=== PATIENT | female | born 1995 | race Caucasian/White ===

== ENCOUNTER 2021-04-30 15:50 | Inpatient (IN) | payer OTHER ==
[~2021-04-30] VITALS: Ht 162.7 cm; Wt 155.5 kg
[2021-05-12] VITALS (234 sets, daily range): BP systolic 123–159; BP diastolic 72–99; PULSE 71–112; TEMP 98.1–98.6; O2SAT 89–100
[2021-05-12] MEDS ORDERED: CALCIUM CITRAT200 M2 (08:05)
[2021-05-12] MEDS ORDERED: MULTIVITAMIN FO1 CAP PO (08:06)
[2021-05-12] MEDS ORDERED: VITAMIN D 400400 IU PO (08:06)
[2021-05-12] MEDS ORDERED: B-12 500 MCG PO (08:07)
[2021-05-12] MEDS ORDERED: HAIRSKINNAILS PO (08:07)
--- NOTE | 2021-05-12 08:35 | NUR ---
Pt to bay [facility], ambulates without difficulty, at bedside. Alert and oriented, assessments and vital signs completed. IV started to right hand #18 gauge. Warm blanket provided, call light in reach, side rails up x2. Dr. Love at bedside and talks with pt.
--- NOTE | 2021-05-12 10:33 | NUR ---
Pt up to the bathroom without difficulty and returns to cart. Call light remains in reach and at bedside.
--- NOTE | 2021-05-12 19:19 | NUR ---
Report given to MERLY Salguero.
--- NOTE | 2021-05-12 20:00 | NUR ---
Assessment complete. Pt is AXO X3, states she has pain in her ABD rated at an 8/10. 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 Pt is resting quietly in the bed using her phone at this time and she denies further needs. Call light within reach.
[2021-05-13] VITALS (347 sets, daily range): BP systolic 91–146; BP diastolic 52–80; PULSE 65–87; TEMP 97.9–99; O2SAT 90–100
--- NOTE | 2021-05-13 07:45 | NUR ---
Bedside shift report given to MERLY Dasilva.
[2021-05-13 09:22] LABS: BASO % 0.1 % (0.0-2.0); EOS # 0.1 (0.0-0.7); EOS % 0.8 % (0-4.0); GRAN # 6.9 (1.4-6.5); GRAN % 69.1 % (42.2-75.2); HEMATOCRIT 37.6 % (37.0-47.0); HEMOGLOBIN 11.6 g/dl (12.5-16.0); LYMPH % 19.8 % (20.0-51.0); MEAN CELL VOLUME 85 fl (80.0-100.0); MEAN CORPUSCULAR HEMOGLOBIN 26 pg (27.0-31.0); MEAN CORPUSCULAR HGB CONC 31 g/dl (33.0-37.0); MEAN PLATELET VOLUME 11.7 fl (7.4-10.4); MONO % 9.9 % (1.7-9.3); PLATELET COUNT 212 K/mm3 (130-400); RED BLOOD COUNT 4.45 M/mm3 (4.10-5.30); REDCELL DISTRIBUTION WIDTH-CV 14.7 % (11.5-14.5)
[2021-05-13 09:34] LABS: CALCIUM 8.2 mg/dL (8.4-10.2); CREATININE, serum 0.65 (0.52-1.25)
--- NOTE | 2021-05-13 09:45 | NUR ---
Bellows Tester met with patient to discuss discharge planning. Patient's , Jonah (ph#[phone]) is at bedside. Patient and Jonah live on [place] and patient receives primary care and medications from [facility]. Patient states she and Jonah have a three year old daughter who is currently being cared for by her mother. Patient does not use any DME and is independent with ADLS. Patient does not have Advance Directives and was not interested in completing DPOA-HC at this time. Discharge Plan: Home
--- NOTE | 2021-05-13 11:07 | NUR ---
Patient transfered from ICU to surgical floor via wheelchair. Assisted by MERLY Silva. Patient alert and oriented and in no distress upon transfer.
--- NOTE | 2021-05-13 12:35 | NUR ---
DC'D DE OLIVEIRA PER ORDERS. PATIENT TOLERATED WELL AND IS NOW GETTING CLEANED UP AND PANTS PUT ON.
--- NOTE | 2021-05-13 23:09 | NUR ---
Pt has been great. She ate, tolerated it.Will continue to monitor.
[2021-05-14 00:09] VITALS: BP 130/52; PULSE 84; TEMP 98.5
[2021-05-14 04:48] VITALS: BP 115/57; PULSE 85; TEMP 98.1
[2021-05-14 06:53] LABS: BASO % 0.3 % (0.0-2.0); EOS # 0.2 (0.0-0.7); EOS % 2.4 % (0-4.0); GRAN # 4.7 (1.4-6.5); GRAN % 59.5 % (42.2-75.2); HEMOGLOBIN 11.2 g/dl (12.5-16.0); LYMPH # 2.1 (1.2-3.4); LYMPH % 26.9 % (20.0-51.0); MEAN CELL VOLUME 85 fl (80.0-100.0); MEAN CORPUSCULAR HEMOGLOBIN 26 pg (27.0-31.0); MEAN CORPUSCULAR HGB CONC 31 g/dl (33.0-37.0); MEAN PLATELET VOLUME 11.5 fl (7.4-10.4); MONO # 0.8 (0.1-0.6); MONO % 10.6 % (1.7-9.3); PLATELET COUNT 200 K/mm3 (130-400); RED BLOOD COUNT 4.28 M/mm3 (4.10-5.30); REDCELL DISTRIBUTION WIDTH-CV 14.8 % (11.5-14.5)
[2021-05-14 06:54] LABS: HEMATOCRIT 36.2 % (37.0-47.0)
[2021-05-14 07:17] LABS: CALCIUM 8.1 mg/dL (8.4-10.2); CREATININE, serum 0.6 (0.52-1.25); POTASSIUM 3.9 mmol/L (3.4-5.0)
[2021-05-14 08:53] VITALS: BP 122/61; PULSE 89; TEMP 98.1
--- NOTE | 2021-05-14 10:37 | NUR ---
Follow-up; Nurse with Patient, Environmental Health Inspector left prayer card having visited [place] yesterday.
[2021-05-14] MEDS ORDERED: NORCOELIX PO (11:10)
[2021-05-14] MEDS ORDERED: ZOFRAN 4MG T4 MG/TAB PO (11:10)
[2021-05-14] MEDS ORDERED: PRILOSEC 20MG20 MG PO (11:11)
[2021-05-14 12:03] VITALS: BP 127/63; PULSE 74; TEMP 97.9
--- NOTE | 2021-05-14 12:48 | NUR ---
Patient ready for discharge. She is feeling much better after talking with dexter Linder. She has better understanding of diet. She was a little emotional this am after asking for assistance after having a BM. Assisted with pericare. Pain much imporved after removed B[place] drain. Overall patient glad to be going home. Her Spouse taking her. SHe verbalized discharge teaching. WE reviewed med sent to pher pharmacy of choice with side effects and last dose taken. Activity & dietarty restrictions reviewed. Patient had pre surgery counciling & denies any further questions or concerns. David wheeled out with all belongigns.
== END 2021-05-14 13:04 | disposition home or self-care (01) | DRG 621 ==
LOC: INPTSU 05-12 07:27 → SURG 05-12 10:00 → ICU 05-12 15:09 → SURG 05-13 11:43
PROVIDERS: ADMIT Surgery
PROC: 8E0W4CZ Robotic Assisted Procedure of Trunk Region, Percutaneous Endoscopic Approach (ICD-10-PCS; 2021-05-12)
PROC: 0D164ZA Bypass Stomach to Jejunum, Percutaneous Endoscopic Approach (ICD-10-PCS; principal; 2021-05-12 10:00)
DX: E66.01 Morbid (severe) obesity due to excess calories (principal); Z68.43 Body mass index [BMI] 50.0-59.9, adult
CPT/HCPCS: A4314; C9113; J0330; J0690; J1170; J1650; J1885; J1956; J2405; J2550; J2704; J3010; J3480; J7120

== ENCOUNTER 2021-07-13 20:09 | Observation (INO) | payer OTHER ==
[~2021-07-13] VITALS: Ht 162.6 cm; Wt 134.5 kg
[~2021-07-13 20:09] MED LIST: B-12 500 MCG PO; CALCIUM CITRAT200 M2; HAIRSKINNAILS PO; MULTIVITAMIN FO1 CAP PO; NORCOELIX PO; PRILOSEC 20MG20 MG PO; VITAMIN D 400400 IU PO; ZOFRAN 4MG T4 MG/TAB PO
[2021-07-13 20:39] LABS: BASO % 0.4 % (0.0-2.0); EOS # 0.2 (0.0-0.7); EOS % 1.6 % (0-4.0); GRAN # 5.1 (1.4-6.5); GRAN % 55.1 % (42.2-75.2); HEMOGLOBIN 13.3 g/dl (12.5-16.0); LYMPH # 3.1 (1.2-3.4); LYMPH % 32.9 % (20.0-51.0); MEAN CELL VOLUME 85 fl (80.0-100.0); MEAN CORPUSCULAR HEMOGLOBIN 27 pg (27.0-31.0); MEAN CORPUSCULAR HGB CONC 32 g/dl (33.0-37.0); MEAN PLATELET VOLUME 12.7 fl (7.4-10.4); MONO # 0.9 (0.1-0.6); MONO % 9.7 % (1.7-9.3); PLATELET COUNT 243 K/mm3 (130-400); RED BLOOD COUNT 4.95 M/mm3 (4.10-5.30); REDCELL DISTRIBUTION WIDTH-CV 15.5 % (11.5-14.5)
[2021-07-13] MEDS ORDERED: AZO-CRANBERRY450 MG (20:47)
[2021-07-13 20:50] LABS: ALBUMIN 4.7 gm/dL (3.5-5.0); BILIRUBIN,TOTAL 0.3 mg/dL (0.0-1.0); C-REACTIVE PROTEIN 1.5 mg/dL (0.0-0.9); CALCIUM 9.8 mg/dL (8.4-10.2); CREATININE, serum 0.66 (0.52-1.25); POTASSIUM 3.9 mmol/L (3.4-5.0); TOTAL PROTEIN 8.3 gm/dL (6.4-8.2)
[2021-07-14 07:16] LABS: BASO % 0.4 % (0.0-2.0); EOS # 0.2 (0.0-0.7); GRAN # 3.8 (1.4-6.5); HEMATOCRIT 38.5 % (37.0-47.0); HEMOGLOBIN 12.1 g/dl (12.5-16.0); LYMPH # 2.5 (1.2-3.4); LYMPH % 33.6 % (20.0-51.0); MEAN CELL VOLUME 86 fl (80.0-100.0); MEAN CORPUSCULAR HEMOGLOBIN 27 pg (27.0-31.0); MEAN CORPUSCULAR HGB CONC 31 g/dl (33.0-37.0); MEAN PLATELET VOLUME 12.6 fl (7.4-10.4); MONO # 0.8 (0.1-0.6); MONO % 10.7 % (1.7-9.3); PLATELET COUNT 195 K/mm3 (130-400); REDCELL DISTRIBUTION WIDTH-CV 15.6 % (11.5-14.5)
[2021-07-14 07:23] LABS: ALBUMIN 3.9 gm/dL (3.5-5.0); BILIRUBIN,TOTAL 0.3 mg/dL (0.0-1.0); CALCIUM 9.1 mg/dL (8.4-10.2); CREATININE, serum 0.57 (0.52-1.25); TOTAL PROTEIN 6.9 gm/dL (6.4-8.2)
--- NOTE | 2021-07-14 09:45 | NUR ---
Patient to room via wheel chair by ER staff. IVF to pump at 125 ml/hr. Pt oriented to room.
[2021-07-14 10:23] VITALS: BP 103/44; PULSE 71; TEMP 98
--- NOTE | 2021-07-14 10:30 | NUR ---
"INTAKE ASSESSMENT COMPLETED. PATIENT WONDERING ABOUT PROGRESSING DIET FROM NPO| CURRENT PAIN 5/10 IN RIGHT UPPER QAUDRANT. 1045| CALL TO DR. ALEMAN'S NURSE. INSTRUCTED TO CALL DR. ALEMAN ON CELL HE IS IN OR TODAY. 1051: CALL TO DR. ALEMAN. TORB FOR CLEAR LIQUID DIET; TREAT PAIN AND NAUSEA PRN. WILL BE UP TO SEE PATIENT LATER TODAY."
--- NOTE | 2021-07-14 11:29 | NUR ---
PATIENT UP TO RESTROOM INDEPENDANTLY. C/O PAIN IN RUQ AT 5/10, DENIES MORPHINE AT THIS TIME, [facility] BLANKET PROVIDED. PT ABLE TO ORDER CLD FOR LUNCH. CALL LIGHT AND BELONGINGS AT BEDSIDE. BED LOW AND LOCKED. AT BEDSIDE.
[2021-07-14 14:00] VITALS: BP 100/48; PULSE 76; TEMP 97.9
--- NOTE | 2021-07-14 15:11 | NUR ---
Patient showered and changed into own clothing. Pt c/o headache and decreased URQ pain. Would like some tylenol for PARDO. Call to Dr. Ivan KEITH for 650 mg q 6 PRN for pain. Okay to d/c IVF if tolerating PO fluids. Dr. Love will enter orders for PO pain meds for URQ pain.
[2021-07-14 18:40] VITALS: BP 105/52; PULSE 67; TEMP 97.6
[2021-07-15 00:30] VITALS: BP 92/42; PULSE 63; TEMP 97.9
[2021-07-15 04:15] VITALS: BP 114/65; PULSE 80; TEMP 97.4
[2021-07-15 07:17] LABS: ALBUMIN 4.3 gm/dL (3.5-5.0); BILIRUBIN,TOTAL 0.2 mg/dL (0.0-1.0); CALCIUM 9.4 mg/dL (8.4-10.2); CREATININE, serum 0.51 (0.52-1.25); POTASSIUM 4.1 mmol/L (3.4-5.0); TOTAL PROTEIN 7.4 gm/dL (6.4-8.2)
[2021-07-15 08:00] VITALS: BP 109/65; PULSE 71; TEMP 97.5
--- NOTE | 2021-07-15 10:54 | NUR ---
Initial visit; Patient thanked [employer] for looking in on her and wishing her well and a blessed recovery.
[2021-07-15 11:43] VITALS: BP 112/64; PULSE 58; TEMP 97.8
--- NOTE | 2021-07-15 12:30 | NUR ---
DISCHARGE TEACHING COMPLETED. INT DC'D. QUESTIONS INVITED AND ANSWERED. PT ORDERS LUNCH AND THEN WILL LEAVE.
== END 2021-07-15 13:45 | disposition home or self-care (01) ==
LOC: COL.ER 20:09 → OB 22:11 → COL.ER 22:15 → OB 22:15
PROVIDERS: Emergency Medicine; ADMIT Surgery
DX: K85.90 Acute pancreatitis without necrosis or infection, unspecified (principal); E28.2 Polycystic ovarian syndrome; E66.9 Obesity, unspecified; Z79.899 Other long term (current) drug therapy; Z98.84 Bariatric surgery status; Z90.89 Acquired absence of other organs
CPT/HCPCS: G0378; J1956; J2270; J2405; J7030; Q9967